=== PATIENT | male | born 1940 | race Caucasian/White ===

== ENCOUNTER → 2024-02-05 07:19 | Outpatient (REF) | payer MEDICARE, BC, SELFPAY | LOC: RCS 07:19 | PROVIDERS: ATTENDING PHYSICIAN Nurse Practitioner | DX: R06.00 Dyspnea, unspecified (principal); I25.10 Atherosclerotic heart disease of native coronary artery without angina pectoris | CPT/HCPCS: 78452; 93017; A9500 ==

== ENCOUNTER → 2024-03-11 08:24 | Outpatient (REF) | payer MEDICARE, BC, SELFPAY | LOC: RCS 08:24 | PROVIDERS: ATTENDING PHYSICIAN Nurse Practitioner | DX: I27.20 Pulmonary hypertension, unspecified (principal); I50.32 Chronic diastolic (congestive) heart failure; I48.91 Unspecified atrial fibrillation; R06.00 Dyspnea, unspecified | CPT/HCPCS: 93306 ==

== ENCOUNTER 2024-05-12 06:08 | Inpatient (IN) | payer MEDICARE, BC, SELFPAY ==
[2024-05-02 08:26] VITALS: BMI 27.0
[2024-05-02 08:53] LABS: INR 1.11; PT 14.1 Sec (11.4-14.6)
[2024-05-02 09:04] LABS: Hematocrit 41.5 % (39.0-52.0); Hemoglobin 12.9 g/dL (13.0-18.0); Mean Corp Hgb Conc. 31.1 g/dL (33.0-37.0); Mean Corpuscular Hgb 25.4 pg (27.0-31.0); Mean Corpuscular Volume 81.7 fL (80.0-94.0); Platelet Count 237 10^3/uL (130-400); Red Blood Cell Count 5.08 10^6/uL (4.70-6.10); Red Cell Dist. Width 17.7 % (11.5-14.5); White Blood Cell Count 6.8 10^3/uL (4.8-10.8)
[2024-05-02 10:11] LABS: ALT (SGPT) 39 U/L (0-50); AST (SGOT) 55 U/L (17-59); Albumin 4.5 g/dl (3.5-5.0); Alkaline Phosphatase 115 U/L (38-126); Blood Urea Nitrogen 29 mg/dl (9-20); Calcium 9.5 mg/dl (8.4-10.2); Carbon Dioxide 27 mmol/L (22-30); Chloride 105 mmol/L (98-107); Estimated Creatinine Clearance 31 ml/min; Glucose 99 mg/dl (70-99); Potassium 5.5 mmol/L (3.5-5.1); Sodium 146 mmol/L (135-145); Total Bilirubin 2.3 mg/dl (0.2-1.3); Total Protein 7.8 g/dl (6.3-8.2); eGFR 39.02
[2024-05-02 10:27] LABS: Glycohemoglobin (HgbA1c) 6.5 % (4.0-5.6)
--- NOTE | 2024-05-05 10:13 | PTCARENOTE ---
K+ 5.5, Maddie at office notified.
--- NOTE | 2024-05-05 13:03 | PTCARENOTE ---
Abn ECG, Dr. Torrez notified, no further actions requested.
[2024-05-12] VITALS (19 sets, daily range): BP systolic 93–146; BP diastolic 61–101; BMI 27.0; BMI 26.6
[2024-05-12] MEDS: ENTEREG 12 MG PO (06:38)
[2024-05-12] MEDS: NEURONTIN 600 MG PO (06:38)
[2024-05-12] MEDS: TYLENOL 1000 MG PO (06:38)
[2024-05-12] MEDS: HEPARIN 5000 UNITS SC (06:39)
[2024-05-12] MEDS: NORMOSOL-R/PLASMALYTE-A 1000 IV (06:42)
[2024-05-12 07:12] LABS: Potassium, Plasma 4.2 mMOL/L
--- NOTE | 2024-05-12 09:49 | W.IMMPOSTOP ---
Addendum entered and electronically signed by Fer Sin MD 05/12/24 11:12:
Update: patient taking a while to wake up fully and has significant JVD. Will upgrade to ICU.
Addendum entered and electronically signed by Fer Sin MD 05/12/24 10:13:
Consulting hospitalist for medical management.
Patient's, significant other, Annamarie updated via phone conversation.
Original Note:
Surgical Immed Post Op Note
-
Primary Surgeon: Hunter Sin MD
Assisting Surgeon: RACHEL Watson
Pre-op Diagnosis: rectal prolapse
Post-op Diagnosis: same
Procedure Performed: robotic rectopexy
Anesthesia Type: general plus local
Specimen / Cultures: none
Estimated Blood Loss: 30 cc
Complications: no immediate
Operative Findings: redundant rectosigmoid
Graf, ureteral stents by urology (Dr. Aguilar). One stent removed at end of case.
Will send to IMU given comorbidities at request of anesthesia (Dr. Fairbanks).
[2024-05-12 10:27] LABS: % Basophils 0.6 % (0-2); % Eosinophils 0.7 % (0-6); % Immature Granulocytes 0.2 % (0-0.5); % Lymphocytes 32.3 % (20.5-51.1); % Monocytes 3.3 % (1.7-9.3); % Neutrophils 62.9 % (42.2-75.2); Absolute Basophils 0.1 10^3/uL (0-0.2); Absolute Eosinophils 0.1 10^3/uL (0-0.7); Absolute Lymphocytes 2.6 10^3/uL (1.2-3.4); Absolute Monocytes 0.3 10^3/uL (0.1-0.6); Absolute Neutrophils 5.1 10^3/uL (1.4-6.5); Hematocrit 37.5 % (39.0-52.0); Mean Corpuscular Hgb 25.6 pg (27.0-31.0); Mean Platelet Volume 10.7 fL (7.4-10.4); Nucleated Red Blood Cells % 0 % (-); Platelet Count 202 10^3/uL (130-400); Red Blood Cell Count 4.69 10^6/uL (4.70-6.10); Red Cell Dist. Width 17.5 % (11.5-14.5); White Blood Cell Count 8.1 10^3/uL (4.8-10.8)
[2024-05-12] MEDS: ZOFRAN 4 MG IV (10:37)
[2024-05-12 10:48] LABS: Blood Urea Nitrogen 24 mg/dl (9-20); Calcium 8.4 mg/dl (8.4-10.2); Carbon Dioxide 14 mmol/L (22-30); Chloride 106 mmol/L (98-107); Estimated Creatinine Clearance 40 ml/min; Glucose 140 mg/dl (70-99); Magnesium 2.2 mg/dl (1.6-2.3); Potassium 4.1 mmol/L (3.5-5.1); Sodium 138 mmol/L (135-145); eGFR 53.84
--- NOTE | 2024-05-12 11:20 | SUR.PHASEI ---
Pt. was upgraded to ICU from IMU after talking w/ MD Sin d/t frequent airway obstruction, mild JVD, previously elevated K: 5.5, and need for ART line to remain in. Pt. intermittently tachycardic in AFib with a Left bundle branch block
([id number]). Pt. is a RASS: -1/-2 and arouses with light stimuli AAOx3 with mild forgetfulness. Incision sites are C/D/I with no signs of discomfort, hematoma formation, or active bleeding.
--- NOTE | 2024-05-12 11:35 | CON.INTV ---
Consultation
Consultation Request
Date/Time Consultation Requested: 05/12
Date/Time Consultation Performed: 05/12
Reason for Consultation: Critical care
Medical History
-
History of Present Illness:
History obtained from the patient, hospital records and reviewing outpatient records. Patient is an 83-year-old male with history of fecal incontinence, rectal prolapse, atrial fibrillation, who is presently status post robotic rectopexy, ureteral
stents. Patient required intermittent pressors throughout procedure per records. Minimal blood loss. Due to history of pulmonary hypertension, suspicion for increased volume status, patient was upgraded to ICU. A-line in place. Presently
patient is without chest pain, shortness of breath, nausea. He has some mild abdominal discomfort. Neurologically he is intact, moving all extremities. We are asked to help from critical care standpoint.
Of note, Graf catheter is in place with gross hematuria
.
PMH: Atrial fibrillation, pulmonary hypertension, hypertension, chronic kidney disease stage II, nephrolithiasis, history of asthma, peripheral vascular disease with carotid endarterectomy, sleep apnea not treated, Mild restrictive lung disease TLC
72%, DLCO 63%, history of small pulmonary nodules, history of TURP, broken hip 2022
Past Medical History
Past Medical History: None (See above)
Past Surgical History: None (See above)
Social History
Tobacco: Non-smoker
Alcohol: None
Drug: None
Personal: Partner
Living: With Roomate (Lives with female partner)
Employment: Retired ([employer])
Family History
Family History: Other (4 brothers, 7 sisters (only one sibling still living), 1 daughter. Brother with history of pancreatic cancer. Mother at age 50, heart disease.)
Allergies / Home Medications
Allergies
Allergy/AdvReac Type Severity Reaction Status Date / Time
rivaroxaban [From Xarelto] Allergy Hives Verified 05/12/24 06:24
terbinafine [From Lamisil] Allergy Loss of Verified 05/12/24 06:24
Taste
Home Medications
�Medication �Instructions �Recorded �Confirmed �Last Taken �Type
apixaban 2.5 mg tablet (Eliquis) 2.5 mg PO BID 05/06/24 05/12/24 05/08/24 08:00 History
coenzyme Q10 100 mg capsule 200 mg PO DAILY 05/06/24 05/12/24 04/28/24 History
(CoQ-10)
ezetimibe 10 mg tablet (Zetia) 10 mg PO DAILY 05/06/24 05/12/24 05/08/24 History
famotidine 40 mg tablet 40 mg PO BID 05/06/24 05/12/24 05/08/24 History
magnesium 250 mg tablet 500 mg PO DAILY 05/06/24 05/12/24 05/08/24 History
metoprolol tartrate 25 mg tablet 25 mg PO BID 05/06/24 05/12/24 05/08/24 History
potassium chloride 20 mEq 20 meq PO BID 05/06/24 05/12/24 05/08/24 History
tablet,extended release
rosuvastatin 40 mg tablet 40 mg PO DAILY 05/06/24 05/12/24 05/08/24 History
sodium sul 1.479 gram-potas ch 0 tab PO PER PKG DIR 05/06/24 05/12/24 05/11/24 22:00 History
0.188 gram-magnes sul 0.225 gram
tablet (Sutab)
torsemide 10 mg tablet 10 mg PO BID 05/06/24 05/12/24 05/08/24 History
Review of Systems
-
All other systems: Negative unless noted
Vitals / Labs / Diagnostic Testing
Vital Signs
Temp Pulse Resp BP Pulse Ox
97.2 F 106 13 122/65 92
05/12/24 11:05 05/12/24 11:00 05/12/24 11:00 05/12/24 11:05 05/12/24 11:00
Lab Data
05/12/24 10:14
05/12/24 10:14
Diagnostic Testing:
Physical Exam
-
HEENT: Normocephalic, Anicteric and Other (Right upper extremity)
Cardiovascular: S1/S2, Irregular Rhythm, Murmur (n) and Rub (n)
Respiratory: Wheeze (n), Rales (n), Rhonchi (n) and Non-Labored Respirations
GI: Soft, Non Distended and Non Tender
Neurology: Awake, Alert and No Motor Deficits (Moves all extremities, sequential teds in place)
Skin: Other (Mild pallor)
General: Comfortable
Assessment
-
83-year-old male with history of atrial fibrillation, severe sleep apnea not tolerant of treatment, history of stool incontinence, rectal prolapse status post robotic rectopexy with ureteral stent placement, admitted to ICU due to concerns regarding
volume status in the setting of pulm hypertension. We are asked to help from critical care standpoint 05/12/2024
S/p robotic rectopexy
Ureteral stent placement/removal
05/12/2024
Gross hematuria
Ureteral stent placement, 1 removed per urology
Pulmonary hypertension, PA systolic pressure 63
Enlarged RV size, normal RV function
Severe TR
Per echo March 2024
Mild to moderate MR
Normal LV function
Severe sleep apnea/central apnea, nocturnal hypoxia
Failed CPAP, BiPAP, ASV
Conditions present prior to admission
Chronic atrial fibrillation
On anticoagulation
History of coronary disease with bypass surgery
Hypertension/hyperlipidemia
History of carotid endarterectomy left
History of TURP February 2004
Recent fall with broken hip November 2022
Plan/recommendations
At this time, patient appears to be comfortable.
Mild abdominal discomfort noted. Graf catheter with gross hematuria
JVD noted but history of severe TR noted
Moving forward
Continue with close hemodynamic monitoring
Preoperative EKG with atrial fibrillation, rate 107, nonspecific T wave changes
Suspect prominent JVP secondary to baseline TR
No crackles on exam
Await chest x-ray
Okay to start fluids at 80 cc/h per surgery protocol
Monitor oxygen requirement closely, presently comfortable on nasal cannula
Encouraging, RV function is normal per echo
Gross hematuria noted
Ureteral stent placement per urology
Urology following
DVT prophylaxis: Mechanical teds and sequentials
GI prophylaxis: Not indicated. Patient does take outpatient famotidine
Reviewed with critical care nursing
TCCT 31 min
We will follow
[2024-05-12] MEDS: D5LR 1000 IV ×2 (11:53→23:32)
[2024-05-12] MEDS: TYLENOL 650 MG PO ×4 (11:54→23:32)
--- NOTE | 2024-05-12 11:59 | PTCARENOTE ---
Received pt from PACU @1130. Pt drowsy but oriented to time and place, Afib, sinus tachy. Florence zeroed and correlated with the cuff. 2 Liter nasal canula, lungs diminished throughout bilaterally. Graf in place, hematuria draining. Dr. Raygoza at
bedside. 5 incisional stab sites CDI. Labs sent. Call morales within reach.
[2024-05-12 12:09] LABS: INR 1.18
[2024-05-12 12:10] LABS: APTT 33.5 Sec (23.4-35.0)
--- NOTE | 2024-05-12 12:32 | CON.HOSP ---
Consultation
-
Date/Time Consultation Requested: 05/12/24 1010
Date/Time Consultation Performed: 05/12/24 1232
Requesting Provider: Fer Sin MD
Performing Provider: Cesar Knapp DO
Reason for Consultation: Post-surgical medical management
Family Physician
-
Family Physician: [facility]
Chief Complaint
-
Status post robotic rectopexy, postprocedural lethargy and JVD noted in PACU
History of Present Illness
83-year-old male with CAD s/p CABG, AF (on Eliquis), carotid stenosis s/p endarterectomy, pulmonary hypertension, mitral regurgitation CKD 2, HTN, restrictive lung disease, fecal incontinence with rectal prolapse s/p robotic rectopexy today that
presented to the hospital today for an elective robotic rectopexy for rectal prolapse and ureteral stents. He intermittently required vasopressors throughout the procedure. Minimal blood loss was noted. Following the procedure he was noted to
have jugular venous distention. Concern for worsening pulmonary hypertension secondary to volume status. Symptomatically without complaints including chest pain, dyspnea, lightheadedness, abdominal discomfort, leg edema. Had Graf catheter placed
with gross hematuria noted. Upon my evaluation he was feeling tired, states he felt like he needed to have a bowel movement. Denied any other complaints at the time including chest pain, shortness of breath, fevers or chills, nausea or vomiting,
paresthesias or weakness.
Medical History
Past Medical History
Past Medical History: Reports Arrhythmia, CAD, HTN and Valvular Disease
Past Surgical History: Reports Cardiac (CABG)
Social History
Tobacco: Non-smoker
Alcohol: None
Drug: None
Personal: Partner
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
Allergies / Home Medications
Allergies reflects when Allergies were last updated in [facility].
Home Medications with original date entered in [facility]
Allergy/Medication List:
Allergies
Allergy/AdvReac Type Severity Reaction Status Date / Time
rivaroxaban [From Xarelto] Allergy Hives Verified 05/12/24 06:24
terbinafine [From Lamisil] Allergy Loss of Verified 05/12/24 06:24
Taste
Home Medications
apixaban 2.5 mg tablet (Eliquis) 2.5 mg PO BID 05/06/24
coenzyme Q10 100 mg capsule (CoQ-10) 200 mg PO DAILY 05/06/24
ezetimibe 10 mg tablet (Zetia) 10 mg PO DAILY 05/06/24
famotidine 40 mg tablet 40 mg PO BID 05/06/24
magnesium 250 mg tablet 500 mg PO DAILY 05/06/24
metoprolol tartrate 25 mg tablet 25 mg PO BID 05/06/24
potassium chloride 20 mEq tablet,extended release 20 meq PO BID 05/06/24
rosuvastatin 40 mg tablet 40 mg PO DAILY 05/06/24
sodium sul 1.479 gram-potas ch 0.188 gram-magnes sul 0.225 gram tablet (Sutab) 0 tab PO PER PKG DIR 05/06/24
torsemide 10 mg tablet 10 mg PO BID 05/06/24
Review of Systems
-
A 12 point Review of Systems was completed except as noted: Yes
Constitutional: Reports No Symptoms
EENT: Reports No Symptoms
Respiratory: Reports No Symptoms
Cardiac: Reports No Symptoms
Abdomen/GI: Reports No Symptoms
: Reports No Symptoms
Musculoskeletal: Reports No Symptoms
Skin: Reports No Symptoms
Neurological: Reports No Symptoms
Endocrine: Reports No Symptoms
Hematologic/Lymphatic: Reports No Symptoms
Physical Exam
Vital Signs
Vital Signs
Temp Pulse Resp BP Pulse Ox
97.5 F 89 15 129/88 93
05/12/24 11:55 05/12/24 12:00 05/12/24 12:00 05/12/24 12:00 05/12/24 12:00
Physical Exam
General: Well Nourished, No Apparent Distress and Comfortable; Negative Respiratory Distress
HEENT: Normocephalic, Anicteric and Moist Mucous Membranes
Respiratory: Clear and Non Labored Respirations; Negative Wheezes, Rales, Rhonchi or Accessory Resp Muscle Use
Cardiac: S1/S2 and Regular Rhythm; Negative Murmur, Rub, Peripheral Edema or JVD
GI: Soft, Non Tender, Non Distended and Normal Bowel Sounds
Genito-urinary: No Costovertebral Tend, Bloody Urine and Graf Catheter
Musculoskeletal: No Clubbing, No Cyanosis and No Edema
Skin: Warm and Dry; Negative Rash or Jaundice
Neuro: AO x 3, No Motor Deficits, Nonfocal/Grossly Intact and Other (CN II-XII grossly intact); Negative Tremors
Hematologic/Lymphatic: No Lymphadenopathy
Psych: Calm
Laboratory Results
-
Laboratory Results
05/12/24 10:14
05/12/24 10:14
PT 15.0 Sec (11.4-14.6) H 05/12/24 11:43
INR 1.18 05/12/24 11:43
APTT 33.5 Sec (23.4-35.0) 05/12/24 11:43
Total Bilirubin 2.3 mg/dl (0.2-1.3) H 05/02/24 06:38
AST 55 U/L (17-59) 05/02/24 06:38
ALT 39 U/L (0-50) 05/02/24 06:38
Alkaline Phosphatase 115 U/L (38-126) 05/02/24 06:38
Data Reviewed
-
Diagnostic Radiology: Image personally visualized and interpreted and Discussed with Patient
Lab Data: Labs Reviewed and Discussed with Patient
Impression / Plan
-
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
#Moderate mitral regurgitation
#Severe tricuspid regurgitation
-Likely has a combination of chronic pulmonary hypertension of group 2 and group 3 etiology
-Last echocardiogram showed enlarged RV though normal systolic function; severe TR, moderate MR
-Suspect transient worsening in the context of hemodynamic changes from procedure and anesthesia
-Noted to have jugular venous distention afterwards, briefly required pressors during procedure
-Chest x-ray looks fairly unremarkable upon my preliminary
-Currently receiving maintenance IV fluids, holding home torsemide
-Will monitor clinically, consider IV Lasix if signs of worsening hypervolemia
-Monitor on room oxygen, SpO2 goal >90%
-Consider repeat TTE
#Gross hematuria status post ureteral stent
-Secondary to ureteral stent placement/removal
-Would expect this to clear with time and healing
-Will monitor CBC, monitor urine output and color
-Holding Eliquis for now, urology following
#Status post robotic rectopexy
-Performed for prolapsed rectum, colorectal surgery following
-Will monitor for postsurgical fevers, trend CBC and temperature curve
-Additional postsurgical care per colorectal surgery team
#CAD s/p CABG
#Carotid stenosis s/p left endarterectomy
#Dyslipidemia
-Extensive ASCVD history; Home meds include beta-jenelle, statin, ezetimibe
-Last echocardiogram showed preserved LVEF, enlarged RV size with normal systolic function, severely enlarged LA volume
-No signs or symptoms of active coronary or other vascular ischemia at this time
#Chronic atrial fibrillation
-No known history of electrophysiology interventions/ablations
-Home medications include metoprolol tartrate twice daily, Eliquis reduced dose
-Currently rate controlled, Eliquis on hold for surgical case
-Plan to resume Eliquis within next 24-48
#Hypertension
-Home medication include beta-jenelle, not on any first-line agent
-No known history of hypertensive systemic complications
-Blood pressure most recently 129/88 mmHg, currently on IV fluid
#Restrictive lung disease, mild
-ICU note mentions PFT showing TLC 72%, DLCO 63%
-Differentials include ILD/IPF, occupational lung disease musculoskeletal etiology
-Unlikely to be contributing much to presentation
SCDs
N.p.o. diet for now, defer to colorectal team on feeding
No indication for GI prophylaxis
Disposition in ICU
[2024-05-12] MEDS: DEMADEX 10 MG PO (14:13)
--- NOTE | 2024-05-12 16:10 | PTCARENOTE ---
reassessed, remains very drowsy but easily arousable. sleeping unless disturbed. urine remains bloody, output adequate
--- NOTE | 2024-05-12 17:41 | PTCARENOTE ---
patient lungs diminished@bases. increased urine output, urine now yellow/punch colored. call morales in reach
[2024-05-12] MEDS: KCL 20 MEQ PO (19:46)
[2024-05-12] MEDS: LOPRESSOR 25 MG PO (19:46)
[2024-05-13] VITALS (7 sets, daily range): BP systolic 114–151; BP diastolic 59–98; PULSE 70; O2SAT 95; BMI 26.4
--- NOTE | 2024-05-13 00:27 | PTCARENOTE ---
systems reviewed, pt drowsy but easily arousable, has KRYSTYNA but denies the Bipap because he says it is very uncomfortable, D5 LR running @ 80ml, tylenol given per order pt denies pain besides tender abd when touched, educated at bedside on importance
of IS use, peñaloza with R ureteral stent draining bloody urine, call morales within reach, able to make needs known otherwise refer to documentation.
[2024-05-13] MEDS: TYLENOL PO ×3 (04:05→11:38)
[2024-05-13 04:34] LABS: % Basophils 0.1 % (0-2); % Immature Granulocytes 0.4 % (0-0.5); % Lymphocytes 9.4 % (20.5-51.1); % Monocytes 6.2 % (1.7-9.3); % Neutrophils 83.9 % (42.2-75.2); Absolute Lymphocytes 0.9 10^3/uL (1.2-3.4); Absolute Monocytes 0.6 10^3/uL (0.1-0.6); Absolute Neutrophils 7.5 10^3/uL (1.4-6.5); Hematocrit 36.4 % (39.0-52.0); Hemoglobin 11.9 g/dL (13.0-18.0); Mean Corp Hgb Conc. 32.7 g/dL (33.0-37.0); Mean Corpuscular Volume 79.6 fL (80.0-94.0); Mean Platelet Volume 10.7 fL (7.4-10.4); Nucleated Red Blood Cells % 0 % (-); Platelet Count 182 10^3/uL (130-400); Red Blood Cell Count 4.57 10^6/uL (4.70-6.10); Red Cell Dist. Width 17.3 % (11.5-14.5)
[2024-05-13 04:57] LABS: Blood Urea Nitrogen 25 mg/dl (9-20); Calcium 8.5 mg/dl (8.4-10.2); Carbon Dioxide 17 mmol/L (22-30); Chloride 107 mmol/L (98-107); Estimated Creatinine Clearance 44 ml/min; Glucose 166 mg/dl (70-99); Magnesium 2.1 mg/dl (1.6-2.3); Potassium 4.8 mmol/L (3.5-5.1); Sodium 140 mmol/L (135-145); eGFR 59.26
--- NOTE | 2024-05-13 08:31 | W.PN.INTV ---
Today's Communication / Plan
Recommendations
Continue with management per colorectal surgery
IV fluids
Graf catheter in place, ureteral stent, mild hematuria
For transfer out of ICU. We will sign off. Please call with questions
Assessment
-
83-year-old male with history of atrial fibrillation, severe sleep apnea not tolerant of treatment, history of stool incontinence, rectal prolapse status post robotic rectopexy with ureteral stent placement, admitted to ICU due to concerns regarding
volume status in the setting of pulm hypertension. We are asked to help from critical care standpoint 05/12/2024
S/p robotic rectopexy
Ureteral stent placement/removal
05/12/2024
Gross hematuria
Ureteral stent placement, 1 removed per urology
Pulmonary hypertension, PA systolic pressure 63
Enlarged RV size, normal RV function
Severe TR
Per echo March 2024
Mild to moderate MR
Normal LV function
Severe sleep apnea/central apnea, nocturnal hypoxia
Failed CPAP, BiPAP, ASV
Conditions present prior to admission
Chronic atrial fibrillation
On anticoagulation
History of coronary disease with bypass surgery
Hypertension/hyperlipidemia
History of carotid endarterectomy left
History of TURP February 2004
Recent fall with broken hip November 2022
Plan/recommendations
At this time, patient appears to be comfortable.
Denies shortness of breath, abdominal pain
Graf catheter with gross hematuria, improving
No hypoxemia noted
Urine output adequate, creatinine 1.2
Hemoglobin stable
Moving forward
Continue with supportive care
Suspect prominent JVP secondary to baseline TR
No crackles on exam
Chest x-ray unremarkable
Continue fluids per surgery protocol
Monitor oxygen requirement closely, presently comfortable on nasal cannula
Encouraging, RV function is normal per echo
Gross hematuria noted
Ureteral stent placement per urology
Urology following
Graf catheter remains in place
DVT prophylaxis: Mechanical teds and sequentials
GI prophylaxis: Not indicated. Patient does take outpatient famotidine
Reviewed with critical care nursing, colorectal surgery
Okay for transfer out of ICU. We will sign off. Please call with questions
Subjective Dataa
Subjective Data
Date of Service:
Date of Service: May 13, 2024
Subjective:
Patient is feeling well. Denies shortness of breath, chest pain, nausea, abdominal pain. Graf catheter remains in place, hematuria slightly improved. Witnessed apneas during sleep noted
Objective Data
Data Reviewed
Vital Signs / I&O / Oxygen:
Vital Signs
Temp Pulse Resp BP Pulse Ox
97.9 F 73 19 123/79 97
05/13/24 03:00 05/13/24 06:00 05/13/24 06:00 05/13/24 05:27 05/13/24 06:00
Intake and Output
05/12/24 05/13/24 05/14/24
06:59 06:59 06:59
Intake Total 1740 / 1740
Output Total 2760 / 2760
Balance -1020 / -1020
SaO2 97
Nasal Cannula flow liters per 2
minute
Physical Exam
General: Comfortable and Other (Upper extremity A-line)
HEENT: Normocephalic and Anicteric
Cardiovascular: S1-S2, Irregular Rhythm and Murmur (n)
Respiratory: Wheeze (n), Crackles (n) and Rhonchi (n)
GI: Soft, Non Distended and Non Tender
Neurology: Awake, Alert and No Motor Deficits
Skin: Good Color, Cyanosis (n) and Jaundice (n)
Labs/Micro/Reports
Lab Data
05/13/24 04:01
05/13/24 04:01
Laboratory Results
05/12/24
11:43
PT 15.0 H
INR 1.18
APTT 33.5
[2024-05-13] MEDS: KCL 20 MEQ PO ×2 (08:39→19:41)
[2024-05-13] MEDS: PROTONIX 40 MG PO (08:39)
[2024-05-13] MEDS: LOPRESSOR 25 MG PO ×2 (08:39→19:41)
[2024-05-13] MEDS: ZETIA 10 MG PO (08:40)
[2024-05-13] MEDS: CRESTOR 40 MG PO (08:40)
[2024-05-13] MEDS: DEMADEX 10 MG PO (08:40)
[2024-05-13] MEDS: ENTEREG 12 MG PO ×2 (08:40→19:41)
--- NOTE | 2024-05-13 11:34 | W.PN.CRS1 ---
Today's Communication / Plan
-
Clears
Okay to transfer to [facility]
Stent removed
Out of bed
Assessment/Plan
-
POD#1 robotic rectopexy
-Creatinine 1.2 from 1.7, will trend otherwise labs and vitals normal
-Continue to hold home Eliquis
-Stent #2 removed at bedside
-Continue Graf until tomorrow for I's and O's
-Start Lovenox tonight for DVT prophylaxis
-Up and out of bed with physical therapy
-Start a clear liquid diet
-DC IV fluids when tolerating clears
-OR pathology pending
-Appreciate consultants
-Transfer out of ICU to medical surgical
-Pain control: Tylenol every 4 hours, Dilaudid as needed
Subjective Data
Procedure
05/12/2024- robotic rectopexy
Subjective Data
Date of Service: May 13, 2024
Patient states he has no pain. He denies nausea or vomiting. He is hungry. He overall feels well.
Objective Data
-
Vital Signs
Temp Pulse Resp BP Pulse Ox
97.4 F 64 16 125/81 95
05/13/24 11:22 05/13/24 11:00 05/13/24 11:00 05/13/24 08:40 05/13/24 11:00
Intake & Output
05/12/24 05/13/24 05/14/24
06:59 06:59 06:59
Intake Total 1740 / 1820 320 / 320
Output Total 2760 / 2760 375 / 375
Balance -1020 / -940 -55 / -55
Intake:
Oral fluids 280 / 280
IV fluids (Total) 1460 / 1540 320 / 320
D5lr 1,000 ml @ 80 mls/hr IV . 1360 / 1440 320 / 320
[id number] SAVANNA Rx#:[id number]
Normosol 100 / 100
Output:
Urine, Graf 2760 / 2760 375 / 375
Lab Results
05/13/24 04:01
05/13/24 04:01
Physical Exam
-
General: No Acute Distress and AOx3
Abdomen: Soft, Non Distended and Non Tender
Skin: Warm and Dry
Wound: No Signs of Infection
[2024-05-13] MEDS: D5LR IV ×2 (11:37→19:49)
--- NOTE | 2024-05-13 11:46 | CM ---
CM following re: discharge planning.
Reviewed pt's chart, met with pt.
Pt is an 83 year old male, admitted with primary dx of POD#1 robotic rectopexy
Pt reports he lives with a lady friend in a 2SH, 2 steps to enter, has supportive daughter. Pt described himself as independent in all areas [employer]PER[employer]. No DME, VN or SNF history. Pt reports he is week now.
PT and OT to valuate the pt to determine a level of care at discharge.
IMM reviewed, placed on chart, pt has a copy.
PCP: [facility] Am[facility]
Pharmacy: [facility]
D/C plan: home with anticipated no needs. Family to transport at discharge.
CM will follow with discharge plan updates as hospitalization progresses
--- NOTE | 2024-05-13 13:48 | W.PN.HOSP.TC ---
Addendum entered and electronically signed by Cesar Knapp DO 05/13/24 14:02:
Seen and examined the patient at the bedside today. No acute events overnight. As of this morning he denies chest pain, shortness of breath, fevers or chills, nausea, vomiting, urinary issues, abnormal bleeding or bruising, paresthesias or
weakness. Does have concerns about fecal incontinence and requesting diaper for before he works out with physical therapy.
He remains AFVSS
NAD, AAOx4
NC/AT, MMM, anicteric
CTA bilaterally, no adventitious sounds
RRR, no M/G/R, normal S1 and S2, 2+ pulses, no edema
No gross deformities, adequate muscle strength
Cranial nerves grossly intact, no focal deficits
Calm and cooperative
Original Note:
Today's Communication/Plan
-
Monitor clinically on room air
CLD for now, advance diet at colorectal's discretion
Trial of void tomorrow
Plan to resume Eliquis in 24-48 hours
Assessment / Plan
Assessment / Plan
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
#Moderate mitral regurgitation
#Severe tricuspid regurgitation
-Likely has a combination of chronic pulmonary hypertension of group 2 and group 3 etiology
-Last echocardiogram showed enlarged RV though normal systolic function; severe TR, moderate MR
-Suspect transient worsening in the context of hemodynamic changes from procedure and anesthesia
-Noted to have jugular venous distention afterwards, briefly required pressors during procedure
-Monitor on room oxygen, SpO2 goal >90%
-Resumed on torsemide 10 mg daily
#Gross hematuria status post ureteral stent
-Secondary to ureteral stent placement/removal
-Would expect this to clear with time and healing
-Will monitor CBC, monitor urine output and color
-Holding Eliquis for now, resume at urology and colorectal discretion
-Planning a trial of void for tomorrow morning
#Status post robotic rectopexy
-Performed for prolapsed rectum, colorectal surgery following
-Will monitor for postsurgical fevers, trend CBC and temperature curve
-Additional postsurgical care per colorectal surgery team
#CAD s/p CABG
#Carotid stenosis s/p left endarterectomy
#Dyslipidemia
-Extensive ASCVD history; Home meds include beta-jenelle, statin, ezetimibe
-Last echocardiogram showed preserved LVEF, enlarged RV size with normal systolic function, severely enlarged LA volume
-No signs or symptoms of active coronary or other vascular ischemia at this time
#Chronic atrial fibrillation
-No known history of electrophysiology interventions/ablations
-Home medications include metoprolol tartrate twice daily, Eliquis reduced dose
-Currently rate controlled, Eliquis on hold for surgical case
#Hypertension
-Home medication include beta-jenelle, not on any first-line agent
-No known history of hypertensive systemic complications
-Blood pressure most recently 129/88 mmHg, currently on IV fluid
#Restrictive lung disease, mild
-ICU note mentions PFT showing TLC 72%, DLCO 63%
-Differentials include ILD/IPF, occupational lung disease musculoskeletal etiology
-Unlikely to be contributing much to presentation
SCDs
Clear liquid diet
Will begin working with PT today
Transferred to [facility]
Medicine will continue to follow along, please reach out with any questions you have
Anticipated Discharge: 24 - 48 hours
Subjective/Interval History
-
Date of Service: May 13, 2024
Objective Data
-
Labs:
Laboratory Results
05/13/24
04:01
WBC 9.0
Hgb 11.9 L
Hct 36.4 L
Plt Count 182
Sodium 140
Potassium 4.8
Chloride 107
Carbon Dioxide 17 L
BUN 25 H
Creatinine 1.2
Glucose 166 H
Calcium 8.5
Vital Signs:
Vital Signs
Temp Pulse Resp BP Pulse Ox
98.5 F 80 16 128/59 96
05/13/24 12:30 05/13/24 12:30 05/13/24 12:30 05/13/24 12:30 05/13/24 12:30
I&O
05/12/24 05/13/24 05/14/24
06:59 06:59 06:59
Intake Total 1740 / 1820 320 / 320
Output Total 2760 / 2760 375 / 375
Balance -1020 / -940 -55 / -55
[2024-05-13] MEDS: TYLENOL 650 MG PO ×2 (15:43→19:40)
[2024-05-13] MEDS: LOVENOX 40 MG SC (17:21)
[2024-05-14] MEDS: TYLENOL PO ×2 (01:01→04:29)
[2024-05-14 06:00] VITALS: BMI 26.1
[2024-05-14 07:10] VITALS: BP 121/83
[2024-05-14] MEDS: CRESTOR 40 MG PO (07:50)
[2024-05-14] MEDS: ZETIA 10 MG PO (07:51)
[2024-05-14] MEDS: TYLENOL 650 MG PO ×3 (07:51→16:36)
[2024-05-14] MEDS: KCL 20 MEQ PO (07:51)
[2024-05-14] MEDS: DEMADEX 10 MG PO (07:51)
[2024-05-14] MEDS: ENTEREG 12 MG PO (07:51)
[2024-05-14] MEDS: LOPRESSOR 25 MG PO (07:52)
[2024-05-14] MEDS: PROTONIX 40 MG PO (07:52)
[2024-05-14 08:45] LABS: Hematocrit 41.8 % (39.0-52.0); Hemoglobin 13.2 g/dL (13.0-18.0); Mean Corp Hgb Conc. 31.6 g/dL (33.0-37.0); Mean Corpuscular Hgb 26.2 pg (27.0-31.0); Mean Corpuscular Volume 82.9 fL (80.0-94.0); Mean Platelet Volume 10.2 fL (7.4-10.4); Platelet Count 199 10^3/uL (130-400); Red Blood Cell Count 5.04 10^6/uL (4.70-6.10); Red Cell Dist. Width 18.1 % (11.5-14.5); White Blood Cell Count 10.6 10^3/uL (4.8-10.8)
[2024-05-14 09:44] LABS: Blood Urea Nitrogen 27 mg/dl (9-20); Calcium 9.4 mg/dl (8.4-10.2); Carbon Dioxide 22 mmol/L (22-30); Chloride 102 mmol/L (98-107); Estimated Creatinine Clearance 37 ml/min; Glucose 119 mg/dl (70-99); Potassium 4.6 mmol/L (3.5-5.1); Sodium 141 mmol/L (135-145); eGFR 49.25
--- NOTE | 2024-05-14 12:21 | W.PN.HOSP.TC ---
Today's Communication/Plan
-
Resume Eliquis this evening
Bladder scan
Consider discharge
Assessment / Plan
Assessment / Plan
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
#Moderate mitral regurgitation
#Severe tricuspid regurgitation
-Likely has a combination of chronic pulmonary hypertension of group 2 and group 3 etiology
-Last echocardiogram showed enlarged RV though normal systolic function; severe TR, moderate MR
-Noted to have jugular venous distention afterwards, briefly required pressors during procedure
-Resumed on torsemide 10 mg daily; Monitor on room oxygen, SpO2 goal >90%
#Gross hematuria status post ureteral stent
-Secondary to ureteral stent placement/removal
-Would expect this to clear with time and healing
-Graf catheter removed this morning, patient voided following removal
-Likely appropriate to resume his Eliquis this evening
#Status post robotic rectopexy
-Performed for prolapsed rectum, colorectal surgery following
-Will monitor for postsurgical fevers, trend CBC and temperature curve
-Additional postsurgical care per colorectal surgery team
#CAD s/p CABG
#Carotid stenosis s/p left endarterectomy
#Dyslipidemia
-Extensive ASCVD history; Home meds include beta-jenelle, statin, ezetimibe
-Last echocardiogram showed preserved LVEF, enlarged RV size with normal systolic function, severely enlarged LA volume
-No signs or symptoms of active coronary or other vascular ischemia at this time
#Chronic atrial fibrillation
-No known history of electrophysiology interventions/ablations
-Home medications include metoprolol tartrate twice daily, Eliquis reduced dose
-Currently rate controlled, Eliquis on hold but should be resumed tonight
#Hypertension
-Home medication include beta-jenelle, not on any first-line agent
-No known history of hypertensive systemic complications
-Blood pressure most recently 129/88 mmHg, currently on IV fluid
#Restrictive lung disease, mild
-ICU note mentions PFT showing TLC 72%, DLCO 63%
-Differentials include ILD/IPF, occupational lung disease musculoskeletal etiology
-Unlikely to be contributing much to presentation
SCDs
Clear liquid diet
Will begin working with PT today
Transferred to [facility]
Medicine will continue to follow along, please reach out with any questions you have
Anticipated Discharge: Today
Subjective/Interval History
-
Date of Service: May 14, 2024
Seen and examined at bedside. No acute events reported overnight.
AFVSS this morning. Graf catheter had just been removed, he states that he went to the bathroom and was able to urinate
He denies any and all acute complaints
Objective Data
-
Labs:
Laboratory Results
05/14/24
08:35
WBC 10.6
Hgb 13.2
Hct 41.8
Plt Count 199
Sodium 141
Potassium 4.6
Chloride 102
Carbon Dioxide 22
BUN 27 H
Creatinine 1.4 H
Glucose 119 H
Calcium 9.4
Vital Signs:
Vital Signs
Temp Pulse Resp BP Pulse Ox
97.5 F 63 14 121/83 98
05/14/24 07:10 05/14/24 07:52 05/14/24 07:10 05/14/24 07:52 05/14/24 07:10
I&O
05/13/24 05/14/24 05/15/24
06:59 06:59 06:59
Intake Total 1740 / 1820 920 / 920
Output Total 2760 / 2760 1825 / 1825 50 / 50
Balance -1020 / -940 -905 / -905 -50 / -50
Review of Systems
-
History Source: Patient
All other systems: Reviewed and negative
Physical Exam
-
General: No Apparent Distress and Comfortable
HEENT: Normocephalic, Atraumatic and Moist Mucous Membranes
Respiratory: Clear to Auscultation and Non Labored Respirations
Cardiac: Regular Rhythm and S1/S2; Negative Murmur, Rub, JVD or Gallop
GI: Soft, Nontender and Nondistended
Musculoskeletal: No Clubbing, No Cyanosis and No Edema
Skin: Warm and Dry; Negative Rash
Neuro: AO x 3, Nonfocal/Grossly Intact and Central Nerve's Intact
Data Reviewed
-
Labs: Labs Reviewed by me
--- NOTE | 2024-05-14 12:33 | W.PN.CRS1 ---
Today's Communication / Plan
-
As below
Assessment/Plan
-
83-year-old male with CAD s/p CABG, AF (on Eliquis), carotid stenosis s/p endarterectomy, pulmonary hypertension, mitral regurgitation CKD 2, HTN, restrictive lung disease, fecal incontinence who presented for elective surgery
POD 2 robotic rectopexy with ureteral stents
Post-op monitored in the ICU for c/f worsening pulmonary HTN and JVD
AFVSS
WBC 10.6 from 9.0, Hb 13.2 from 11.9
� Advance to low residue
� Continue pain control with Tylenol, Dilaudid as needed; continue Entereg; will switch to p.o. option for discharge
� Continue DVT PPx Lovenox; will have patient start AC tomorrow
� Encourage IS/OOB; appreciate PT�okay for DC home
� Continue home meds
� Appreciate hospitalist
Dispo�if tolerating low fiber, okay for DC if medically clear; possibly this afternoon versus tomorrow
Subjective Data
Procedure
05/12/2024- robotic rectopexy
Subjective Data
Date of Service: May 14, 2024
No overnight events.
Pain controlled.
Denies nausea/vomiting. Tolerating diet.
+flatus +BMs +voiding
Objective Data
-
Vital Signs
Temp Pulse Resp BP Pulse Ox
97.5 F 63 14 121/83 98
05/14/24 07:10 05/14/24 07:52 05/14/24 07:10 05/14/24 07:52 05/14/24 07:10
Intake & Output
05/13/24 05/14/24 05/15/24
06:59 06:59 06:59
Intake Total 1740 / 1820 920 / 920
Output Total 2760 / 2760 1825 / 1825 50 / 50
Balance -1020 / -940 -905 / -905 -50 / -50
Intake:
Oral fluids 280 / 280 600 / 600
IV fluids (Total) 1460 / 1540 320 / 320
D5lr 1,000 ml @ 80 mls/hr IV . 1360 / 1440 320 / 320
[id number] SAVANNA Rx#:[id number]
Normosol 100 / 100
Output:
Urine, Graf 2760 / 2760 1825 / 1825
Urine, Voided 50 / 50
Lab Results
05/14/24 08:35
05/14/24 08:35
Physical Exam
-
General: No Acute Distress and AOx3
HEENT: Grossly Normal
Abdomen: Soft, Non Distended, Tender (Appropriately tender near incisions), No Guarding and No Rebound
Skin: Warm and Dry
Wound: No Signs of Infection, Dressing in Place (With Dermabond), No Skin Erythema and Other (No drainage)
[2024-05-14 15:59] VITALS: BP 137/87
--- NOTE | 2024-05-14 16:12 | CM ---
Met with patient at bedside; initial assessment completed
Pharmacy verified: [facility] @ [address] [place] [address]
Patient reported that he lives in a 2 story home; powder room on 1st floor; 2nd floor bath has tub w/shower; grab bar
PLOF: patient reported that he was independent with ambulation, stairs an ADLs
NO DME
NO SNF history
Home Health services in November 2023 when in [place]
Life partner, Annamarie, will provide transport home
Plan: discharge today if diet is tolerated; no services
--- NOTE | 2024-05-14 16:23 | W.DS.TRANS ---
Addendum entered and electronically signed by ADINA Calderon 05/14/24 16:45:
dictated #[id number]
Original Note:
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
-
Discharge Instructions:
Discharge Diagnosis/Procedures Rectopexy
Diet Low Fiber
Activity No strenuous activity
Additional Activity Do not lift over 10lbs (gallon of milk)
Driving Restrictions As prior to admission
Bathing Restrictions OK to Shower
Wound Care Wash incisions gently with soap and water, do
not scrub or pick off the glue
Instructions:
Stand-Alone Forms:
Changes to Home Medications: No
Discharge Medications:
DC Medications w/original date entered in [facility]
apixaban 2.5 mg tablet (Eliquis) 2.5 mg PO BID Blood Clot Prevention/Tx 05/06/24
coenzyme Q10 100 mg capsule (CoQ-10) 200 mg PO DAILY Supplement 05/06/24
ezetimibe 10 mg tablet (Zetia) 10 mg PO DAILY High Cholesterol 05/06/24
famotidine 40 mg tablet 40 mg PO BID Gastrointestinal Issue 05/06/24
magnesium 250 mg tablet 500 mg PO BID Electrolyte Repletion 05/06/24
metoprolol tartrate 25 mg tablet 25 mg PO BID Heart Disease/Condition 05/06/24
potassium chloride 20 mEq tablet,extended release 20 meq PO BID Electrolyte Repletion 05/06/24
rosuvastatin 40 mg tablet 40 mg PO DAILY High Cholesterol 05/06/24
torsemide 10 mg tablet 10 mg PO DAILY Fluid Retention/Swelling 05/06/24
acetaminophen 325 mg tablet 650 mg (2 x 325 mg) PO Q4HPRN PRN mild pain #1 tab 05/14/24
oxycodone 5 mg tablet 5 mg PO Q4HPRN PRN breakthrough/severe pain #20 tabs 05/14/24
Home Medication Changes
Pending Results: No
[2024-05-14] MEDS: PREVNAR 20 0.5 ML IM (16:36)
--- NOTE | 2024-05-14 17:14 | PTCARENOTE ---
Patient tolerated dinner without any c/o pain/discomfort/distention/nausea. Discharged to home with significant other. All discharge instructions reviewed and patient escorted via staff escort in wheelchair with all belongings.
== END 2024-05-14 17:18 | disposition home or self-care (01) | DRG 330 ==
LOC: 2 SOUTH 06:08
PROVIDERS: Anesthesiology; Registered Nurse; Specialist; ADMITTING PHYSICIAN Surgery; ATTENDING PHYSICIAN Internal Medicine; CONSULT PHYSICIAN Internal Medicine Critical Care Medicine; FAMILY PHYSICIAN Family Medicine
PROC: 0T788DZ Dilation of Bilateral Ureters with Intraluminal Device, Via Natural or Artificial Opening Endoscopic (ICD-10-PCS; 2024-05-12)
PROC: 0DQP4ZZ Repair Rectum, Percutaneous Endoscopic Approach (ICD-10-PCS; 2024-05-13)
DX: K62.3 Rectal prolapse (principal); I48.20 Chronic atrial fibrillation, unspecified; I27.20 Pulmonary hypertension, unspecified; I12.9 Hypertensive chronic kidney disease with stage 1 through stage 4 chronic kidney disease, or unspecified chronic kidney disease; N18.2 Chronic kidney disease, stage 2 (mild)
CPT/HCPCS: 36415; 71045; 80048; 80053; 83036; 83735; 84132; 85025; 85027; 85610; 85730; 86850; 86900; 86901; 90677; 93005; 97162; G0009; J1335